=== PATIENT | female | born 1985 | race Caucasian/White ===

== ENCOUNTER → 2023-11-21 07:04 | Outpatient (REF) | payer OTHER, SELFPAY | LOC: PNTC 07:04 | PROVIDERS: ATTENDING PHYSICIAN Obstetrics & Gynecology | DX: O09.529 Supervision of elderly multigravida, unspecified trimester (principal); O43.212 Placenta accreta, second trimester | CPT/HCPCS: 76811; 93976 ==

== ENCOUNTER → 2024-01-02 06:57 | Outpatient (REF) | payer OTHER, SELFPAY | LOC: PNTC 06:57 | PROVIDERS: ATTENDING PHYSICIAN Obstetrics & Gynecology | DX: O09.529 Supervision of elderly multigravida, unspecified trimester (principal) | CPT/HCPCS: 76816; 93976 ==

== ENCOUNTER → 2024-02-13 07:02 | Outpatient (REF) | payer OTHER, SELFPAY | LOC: PNTC 07:02 | PROVIDERS: ATTENDING PHYSICIAN Obstetrics & Gynecology | DX: O09.529 Supervision of elderly multigravida, unspecified trimester (principal); O43.219 Placenta accreta, unspecified trimester | CPT/HCPCS: 76816; 93976 ==